=== PATIENT | male | born 1990 | race Two or more races ===

== ENCOUNTER 2019-04-22 18:52 | Emergency (ER) | payer OTHER ==
--- NOTE | 2019-04-22 20:02 | ER Document Report ---
HPI - HPI Time Seen by Provider: 04/22/19 19:51 Pain Level: 3 Context: Healthy 28-year-old male presents the emergency department with chief complaint of bilateral lawson pain. Patient states that it started about a year ago while he was on appointment, he was given light duty and physical therapy exercises and said it was improved, and was told that it was possibly a shinsplints with potential for stress fractures. Patient states that everything was okay but as of late he has been doing more hikes and a lot of boots and use round and the pain has increased significantly. He states he is getting some bilateral distal lower extremity swelling. No unilateral leg swelling, erythema or warmth, no fevers. No chest pain or shortness of breath. Past Medical History - Social History Smoking Status: Never Smoker Family History: None Patient has suicidal ideation: No Patient has homicidal ideation: No Vertical Provider Document - CONSTITUTIONAL Notes: PHYSICAL EXAMINATION: Reviewed vital signs and charting by RN GENERAL: Alert, interacts well. No acute distress. HEAD: Normocephalic, atraumatic. EYES: Pupils equal and round. Extraocular movements intact. ENT: Oral mucosa moist, tongue midline. NECK: Full range of motion. Trachea midline. LUNGS: Clear to auscultation bilaterally, no wheezes, rales, or rhonchi. No respiratory distress. HEART: Regular rate and rhythm. No murmur ABDOMEN: soft, non-tender. No distention. Bowel sounds present EXTREMITIES: Moves all 4 extremities spontaneously. No edema, No cyanosis. Bilateral tenderness to palpation over the anterior tibia PSYCH: Normal affect, normal mood. SKIN: Warm, dry, normal turgor. No rashes or lesions noted. - INFECTION CONTROL TRAVEL OUTSIDE OF THE [place] IN LAST 30 DAYS: No Course - Re-evaluation Re-evalutation: 04/22/19 20:01 Presentation consistent with lawson splints versus stress fractures. 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 I am going to get bilateral tib-fib x-rays to rule out stress fracture. 04/22/19 21:15 No evidence of stress fracture on x-ray but there was a 7 mm ossicle on the left tibia just caudal to the lateral malleolus. I explained all this to patient he is stable for discharge. - Vital Signs Vital signs: Temp Pulse Resp BP Pulse Ox 97.4 F 94 16 153/87 H 93 04/22/19 19:46 04/22/19 19:46 04/22/19 19:46 04/22/19 19:46 04/22/19 19:46 Discharge - Discharge Clinical Impression: Bilateral tibial pain Condition: Stable Disposition: HOME, SELF-CARE Additional Instructions: You were seen in the emergency department this evening for bilateral tibial pain there was no evidence of fracture or dislocation on your x-ray, but there was a well-corticated ossicle identified just above your lateral malleolus that could be suggestive of a prior stress fracture. Please take ibuprofen 600 mg every 6 hours with food or milk and/your Tylenol 1000 mg every 6 hours for pain. Please follow-up in your [facility] in the morning and see a provider for follow-up for this emergency department visit. Please return to the emergency department if you develop worsening, severe symptoms, new or unable to walk, you develop significant swelling of your lower extremities, or you have any other concerning symptoms. Forms: Return to Work Referrals: JUNE SANTILLAN MD [ACTIVE STAFF] - Follow up in 3-5 days
--- NOTE | 2019-04-22 21:06 | RADIOLOGY REPORT (SQ) ---
EXAM: XR TIBIA FIBULA 2 VIEWS BILATERAL CLINICAL INDICATION: 28-year-old male with bilateral lawson pain. Question stress fracture. Four views RIGHT tibia fibula were obtained in AP, and lateral projections. Three views LEFT tibia-fibula were obtained in AP, and lateral projections. COMPARISON: None. FINDINGS: RIGHT tibia-fibula: There is no fracture or dislocation. The joint spaces are preserved. No soft tissue abnormalities are seen. LEFT tibia-fibula: There is no fracture or dislocation. The joint spaces are preserved. No soft tissue abnormalities are seen. Well-corticated ossicle is identified caudal to the lateral malleolus measuring 7 mm suggesting sequela of prior avulsion injury versus ossicle. IMPRESSION: No acute radiographic abnormality. If the patient's symptoms persist, further evaluation with nuclear medicine bone scintigraphy or MRI may be considered.
[2019-04-22 21:31] VITALS: BP 155/97
== END 2019-04-22 21:30 | disposition home or self-care (01) ==
LOC: ER 18:52
DX: M79.662 Pain in left lower leg (principal); M79.661 Pain in right lower leg
CPT/HCPCS: 99283